=== PATIENT | female | born 1950 | race American Indian/Alaskan Native ===

== ENCOUNTER 2018-01-12 12:31 | Outpatient (CLI) | payer MEDICARE ==
--- NOTE | 2018-01-14 15:48 | Mammography Report ---
BILATERAL DIGITAL SCREENING MAMMOGRAM with CAD: 01/12/18 12:31:00 CLINICAL: Routine screening. COMPARISON:None available. FINDINGS: There are bilateral scattered fibroglandular densities. A right focal asymmetry requires additional imaging.No architectural distortion or suspicious calcifications.The left breast is negative. IMPRESSION: Right asymmetry requiring further workup. BI-RADS CATEGORY: 0 -- Additional Imaging Evaluation Required RECOMMENDATION: Recall for right ML , spot magnification CC and MLO views and right breast ultrasound. ACR BI-RADS MAMMOGRAPHIC CODES: 0 = Needs additional imaging evaluation; 1 = Negative; 2 = Benign; 3 = Probably benign; 4 = Suspicious; 5 = Malignant; 6 = Known biopsy-proven malignancy COMMENT: 1. Dense breast tissue, i.e., adenosis, fibrocystic changes, etc., may obscure an underlying neoplasm. 2. Approximately 10% of cancers are not detected with mammography. 3. A negative mammography report should not delay biopsy if a clinically suspicious mass is present. COMMENT: Patient follow-up letters are generated via our [employer] application.
== END 2018-01-12 12:32 | disposition home or self-care (01) ==
LOC: MAMMO 12:31
PROVIDERS: ATTEND Family Medicine
DX: Z12.31 Encounter for screening mammogram for malignant neoplasm of breast (principal)
CPT/HCPCS: 77067

== ENCOUNTER 2019-11-28 08:59 | Emergency (ER) | payer MEDICARE ==
--- NOTE | 2019-11-28 10:15 | Emergency Department Report ---
ED General Adult HPI - General Chief complaint: Extremity Problem,Nontraumatic Stated complaint: SOB/HAND PAIN Time Seen by Provider: 11/28/19 10:10 Source: patient Mode of arrival: Ambulatory Limitations: No Limitations - History of Present Illness Initial comments: Mrs. Vaughan is a 69 yo female with hx of HTN who presents with bilateral hand pain/swelling, bilateral feet swelling and shortness of breath. Since June, her PCP has treated hand pain swelling with medication for RA and gout. For one month has had feet swelling which is new for her. Now has mild shortness of breath and wheezing. No hx of asthma or heart disease. [facility] -: Gradual, month(s) (several months) Location: left, right, upper extremity, lower extremity Consistency: intermittent Improves with: none Worsens with: none Associated Symptoms: shortness of breath Treatments Prior to Arrival: none - Related Data Previous Rx's Medication Instructions Recorded Last Taken Type methylPREDNISolone [Medrol 4MG 4 mg PO DAILY #1 tab.ds.pk 11/28/19 Unknown Rx DOSEPAK (21 tabs)] traMADoL [Ultram 50 MG tab] 50 mg PO Q6HR PRN #15 tablet 11/28/19 Unknown Rx Allergies Allergy/AdvReac Type Severity Reaction Status Date / Time No Known Allergies Allergy Unverified 01/12/18 12:31 ED Review of Systems ROS: Stated complaint: SOB/HAND PAIN Other details as noted in HPI Comment: All other systems reviewed and negative Constitutional: denies: fever, malaise Respiratory: shortness of breath, wheezing. denies: cough Cardiovascular: denies: chest pain Musculoskeletal: myalgia, other (hand swelling feet swelling) ED Past Medical Hx - Past Medical History Previous Medical History?: Yes Hx Hypertension: Yes Hx Arthritis: Yes - Surgical History Past Surgical History?: No - Social History Smoking Status: Current Some Day Smoker Substance Use Type: None - Medications Home Medications: Home Medications Medication Instructions Recorded Confirmed Last Taken Type methylPREDNISolone [Medrol 4MG 4 mg PO DAILY #1 tab.ds.pk 11/28/19 Unknown Rx DOSEPAK (21 tabs)] traMADoL [Ultram 50 MG tab] 50 mg PO Q6HR PRN #15 tablet 11/28/19 Unknown Rx ED Physical Exam - General Limitations: No Limitations General appearance: alert, in no apparent distress, other (pleasant, looks younger than stated age, lively) - Head Head exam: Present: atraumatic, normocephalic - Eye Eye exam: Present: normal appearance - ENT ENT exam: Present: mucous membranes moist - Neck Neck exam: Present: normal inspection, full ROM - Respiratory Respiratory exam: Present: normal lung sounds bilaterally. Absent: respiratory distress, wheezes, rales, rhonchi - Cardiovascular Cardiovascular Exam: Present: regular rate, normal rhythm, normal heart sounds. Absent: systolic murmur, diastolic murmur, rubs, gallop - GI/Abdominal GI/Abdominal exam: Present: soft, normal bowel sounds. Absent: distended, tenderness, guarding, rebound - Extremities Exam Extremities exam: Present: pedal edema (bilaterally pedal edema extending to mid tibial region), other (hands without erythema or edema) - Neurological Exam Neurological exam: Present: alert, oriented X3 - Psychiatric Psychiatric exam: Present: normal affect, normal mood - Skin Skin exam: Present: warm, dry, intact, normal color. Absent: rash ED Course Vital Signs 11/28/19 11/28/19 09:09 10:16 Temperature 97.5 F L Pulse Rate 85 76 Respiratory 20 Rate Blood Pressure 172/82 Blood Pressure 204/116 [Left] O2 Sat by Pulse 97 Oximetry ED Medical Decision Making - EKG Data EKG shows normal: sinus rhythm, axis, intervals, QRS complexes, ST-T waves Rate: normal - EKG Data Interpretation: normal EKG 11/28/19 10:18 EKG obtained 0923 Normal sinus rhythm rate 80 bpm normal axis normal intervals no ST-T signs of ischemia - Radiology Data Radiology results: report reviewed Chest 2 views: Mild cardiac enlargement no acute airspace or interstitial disease no significant pleural effusion - Medical Decision Making 1. bilateral hand pain swelling for several months: ddx: pseudogout, RA, rx: tramadol, medrol dosepak 2. BLE edema: venous insufficiency likely, will need outpatient cardiology w/u CXR: no pulmonary edema 3. shortness of breath hx of smoking, should have outpatient pulmonary function tests Patient understands that she will need to f/u with her PCP. She did not have transportation to which her office today. I have referred Mrs. 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 Critical care attestation.: If time is entered above; I have spent that time in minutes in the direct care of this critically ill patient, excluding procedure time. ED Disposition Clinical Impression: Bilateral hand pain, Swelling of both lower extremities, Shortness of breath Disposition: TO HOME OR SELFCARE Is pt being admited?: No Does the pt Need Aspirin: No Condition: Stable Additional Instructions: Please return to the emergency department if your symptoms worsen. Please take this documentation to your primary care physician. Prescriptions: methylPREDNISolone [Medrol 4MG DOSEPAK (21 tabs)] 4 mg PO DAILY #1 tab.ds.pk traMADoL [Ultram 50 MG tab] 50 mg PO Q6HR PRN #15 tablet PRN Reason: Pain Referrals: ANA PAULA CARRION MD [Referring] - ADRIANNA MCKEON MD [Staff Physician] - OSWALDO WILSON MD [Staff Physician] - MAGALY
[2019-11-28 10:18] VITALS: BP 204/116
--- NOTE | 2019-11-28 10:41 | XRay Report ---
CHEST 2 VIEWS INDICATION: shortness of breath feet swelling. COMPARISON: None. FINDINGS: Support devices: None. Heart: Mild cardiac enlargement. Lungs/Pleura: No acute air space or interstitial disease. No significant pleural effusion. IMPRESSION: Mild cardiac enlargement. Signer Name: Phillip Bowens MD Signed: 11/28/2019 10:36 AM Workstation Name: [id number]
== END 2019-11-28 11:27 | disposition home or self-care (01) ==
LOC: ED 08:59
DX: M25.442 Effusion, left hand (principal); M25.441 Effusion, right hand; I10 Essential (primary) hypertension; R06.02 Shortness of breath; M19.90 Unspecified osteoarthritis, unspecified site; F17.200 Nicotine dependence, unspecified, uncomplicated; Z79.899 Other long term (current) drug therapy
CPT/HCPCS: 71046; 93005; 93010; 99283